=== PATIENT | female | born 1995 | race Caucasian/White ===

== ENCOUNTER → 2020-02-16 15:39 | Outpatient (CLI) | payer BC, SELFPAY ==
[2020-02-22 14:39] LABS: HPV HC, High Risk Negative (Negative)
== END ==
LOC: MFPLAB 15:42 → LABSPEC 15:43
PROVIDERS: PCP Family Medicine; Referring Provider Family Medicine; Visit Provider Family Medicine
DX: Z01.419 Encounter for gynecological examination (general) (routine) without abnormal findings (principal)
CPT/HCPCS: 87624; 88175; G0145

== ENCOUNTER → 2021-10-01 | Outpatient (CLI) | payer SELFPAY ==
[2021-10-01 16:33] LABS: Absolute Lymphocyte Count 1.99 X10^3/uL (0.83-4.51); Absolute Neutrophil Count 5.8 X10^3/uL (2.0-7.7); Basophil# 0.05 X10^3/uL; Basophil% 0.6 % (0-1); Eosinophil# 0.11 X10^3/uL; Eosinophils% 1.3 % (0-5); Hematocrit 38.3 % (37-47); Hemoglobin 12.9 g/dL (12.0-15.0); Lymphocyte # 1.99 X10^3/ul (0.83-4.51); Lymphocyte % 22.9 % (19-41); Mean Corp Hgb Conc 33.7 g/dL (32-36); Mean Corpuscular Hgb 30.7 pg (27.0-32.0); Mean Corpuscular Volume 91.2 fL (81-99); Mean Platelet Vol. 9.1 fl (6.2-12.0); Monocyte# 0.65 X10^3/uL; Monocyte% 7.5 % (0-10); NRBC Flagged by Analyzer 0 % (0-5); Neutrophil # 5.84 X10^3/uL (2.7-7.7); Neutrophil % 67.1 % (47-70); Platelet Count 274 K/mm3 (150-450); RBC Distribution Width CV 12.2 % (11.6-14.6); RBC Distribution Width SD 40.5 fl (35.1-43.9); White Blood Count 8.7 K/mm3 (4.4-11.0)
[2021-10-01 17:40] LABS: HIV - WCH Non-Reactive (Nonreactive); Hepatitis B Surface Antigen Non-Reactive (Nonreactive); Hepatitis C Antibody Non-Reactive (Nonreactive); Rubella IgG Reactive (Nonreactive); Syphilis Antibodies Non-reactive
[2021-10-03 22:07] LABS: Chlamydia By Nucleic Acid AMP Negative (Negative)
[2021-10-04 17:16] LABS: Gonococcus By Nucleic Acid AMP Negative (Negative)
[2021-10-04 21:44] LABS: HPV APTIMA, High Risk Negative (Negative)
== END | disposition home or self-care (01) ==
LOC: WOBLAB 15:21
PROVIDERS: PCP Family Medicine; Visit Provider Obstetrics & Gynecology
DX: Z34.81 Encounter for supervision of other normal pregnancy, first trimester (principal)
CPT/HCPCS: 36415; 85025; 86703; 86762; 86780; 86803; 87086; 87340; 87491; 87591; 87624; 88175; G0145

== ENCOUNTER → 2022-02-12 | Outpatient (CLI) | payer SELFPAY ==
[2022-02-12 14:37] LABS: Absolute Lymphocyte Count 1.38 X10^3/uL (0.83-4.51); Absolute Neutrophil Count 7.7 X10^3/uL (2.0-7.7); Basophil# 0.04 X10^3/uL; Basophil% 0.4 % (0-1); Eosinophil# 0.09 X10^3/uL; Eosinophils% 0.9 % (0-5); Hematocrit 37.3 % (37-47); Hemoglobin 12.7 g/dL (12.0-15.0); Lymphocyte # 1.38 X10^3/ul (0.83-4.51); Lymphocyte % 13.9 % (19-41); Mean Corpuscular Hgb 32.6 pg (27.0-32.0); Mean Corpuscular Volume 95.9 fL (81-99); Mean Platelet Vol. 9.6 fl (6.2-12.0); Monocyte# 0.57 X10^3/uL; Monocyte% 5.7 % (0-10); NRBC Flagged by Analyzer 0 % (0-5); Neutrophil % 77.3 % (47-70); Platelet Count 220 K/mm3 (150-450); RBC Distribution Width CV 12.2 % (11.6-14.6); RBC Distribution Width SD 42.3 fl (35.1-43.9); Red Blood Count 3.89 M/mm3 (4.2-5.4)
[2022-02-12 14:49] LABS: Glucose Challenge Gest 1H 50g 123 mg/dL (70-140)
== END | disposition home or self-care (01) ==
PROVIDERS: PCP Family Medicine; Visit Provider Obstetrics & Gynecology
DX: Z34.82 Encounter for supervision of other normal pregnancy, second trimester (principal)
CPT/HCPCS: 36415; 82950; 85025

== ENCOUNTER → 2022-04-23 | Outpatient (CLI) | payer SELFPAY ==
[2022-04-23 16:41] LABS: Absolute Lymphocyte Count 1.44 X10^3/uL (0.83-4.51); Absolute Neutrophil Count 7.5 X10^3/uL (2.0-7.7); Basophil# 0.03 X10^3/uL; Basophil% 0.3 % (0-1); Eosinophil# 0.05 X10^3/uL; Eosinophils% 0.5 % (0-5); Hematocrit 39.1 % (37-47); Hemoglobin 13.6 g/dL (12.0-15.0); Lymphocyte # 1.44 X10^3/ul (0.83-4.51); Lymphocyte % 14.8 % (19-41); Mean Corp Hgb Conc 34.8 g/dL (32-36); Mean Corpuscular Hgb 33.3 pg (27.0-32.0); Mean Corpuscular Volume 95.6 fL (81-99); Mean Platelet Vol. 9.5 fl (6.2-12.0); Monocyte# 0.59 X10^3/uL; Monocyte% 6.1 % (0-10); NRBC Flagged by Analyzer 0 % (0-5); Neutrophil # 7.49 X10^3/uL (2.7-7.7); Neutrophil % 76.8 % (47-70); Platelet Count 197 K/mm3 (150-450); RBC Distribution Width CV 12.2 % (11.6-14.6); RBC Distribution Width SD 42.3 fl (35.1-43.9); Red Blood Count 4.09 M/mm3 (4.2-5.4); White Blood Count 9.8 K/mm3 (4.4-11.0)
[2022-04-23 18:12] LABS: Syphilis Antibodies Non-reactive
== END | disposition home or self-care (01) ==
PROVIDERS: PCP Family Medicine; Visit Provider Obstetrics & Gynecology
DX: Z34.83 Encounter for supervision of other normal pregnancy, third trimester (principal); Z36.85 Encounter for antenatal screening for Streptococcus B
CPT/HCPCS: 36415; 85025; 86780; 87081

== ENCOUNTER 2022-05-16 22:08 | Inpatient (IN) | payer SELFPAY ==
[2022-05-16 19:53] VITALS: PULSE 83; O2SAT 97
[2022-05-16 19:54] VITALS: BP 112/70; PULSE 83
[2022-05-16 19:58] VITALS: PULSE 87; O2SAT 97
[2022-05-16 20:00] VITALS: BMI 30.8
[2022-05-16 22:40] LABS: Absolute Lymphocyte Count 1.53 X10^3/uL (0.83-4.51); Absolute Neutrophil Count 8.3 X10^3/uL (2.0-7.7); Basophil# 0.04 X10^3/uL; Basophil% 0.4 % (0-1); Eosinophil# 0.06 X10^3/uL; Eosinophils% 0.6 % (0-5); Hematocrit 40.4 % (37-47); Hemoglobin 13.9 g/dL (12.0-15.0); Lymphocyte # 1.53 X10^3/ul (0.83-4.51); Lymphocyte % 14.1 % (19-41); Mean Corp Hgb Conc 34.4 g/dL (32-36); Mean Corpuscular Hgb 32.7 pg (27.0-32.0); Mean Corpuscular Volume 95.1 fL (81-99); Mean Platelet Vol. 10.6 fl (6.2-12.0); Monocyte# 0.73 X10^3/uL; Monocyte% 6.7 % (0-10); NRBC Flagged by Analyzer 0 % (0-5); Neutrophil # 8.33 X10^3/uL (2.7-7.7); POSITIVE COUNT YES; Platelet Count 177 K/mm3 (150-450); RBC Distribution Width CV 12.1 % (11.6-14.6); RBC Distribution Width SD 41.9 fl (35.1-43.9); Red Blood Count 4.25 M/mm3 (4.2-5.4); White Blood Count 10.8 K/mm3 (4.4-11.0)
[2022-05-16 22:41] LABS: Differential Indicated SCAN CRITERIA MET
[2022-05-16 22:49] VITALS: BP 118/70; PULSE 76; TEMP 37.2; O2SAT 98
[2022-05-17] VITALS (68 sets, daily range): BP systolic 90–131; BP diastolic 51–78; PULSE 73–110; RESP 15–18; TEMP 36.1–37.2; O2SAT 96–99
[2022-05-17] MEDS: LACTATED RINGERS 500 ML 999 ML IV (04:26)
[2022-05-17] MEDS: Lactated Ringers 1,000 ML 200 ML IV ×2 (04:57→09:58)
[2022-05-17] MEDS: fentaNYL-bupivacaine (epidural) 100 ML BAG EPIDURAL ×2 (05:29→10:36)
--- NOTE | 2022-05-17 07:32 | HP.PCM.OB_ITS ---
History and Physical Date of Admission: 05/16/22 Chief complaint: Contractions History present illness: 26-year-old G2, P0 at 39 weeks and 3 days with DAVID 05/20/2022 arrived overnight with contractions. Denies headache, vision change, chest pain, shortness of breath, nausea vomit, right upper quadrant pain. Patient states good mo vement. is complicated by hydronephrosis Obstetric history: G1: SAB G2: Current Past medical history: None Medications: vitamin Past surgical history: None Allergies: No known drug allergies Social history: Denies smoking, alcohol, drug use Family history: Denies history DVT or PE Review of systems: Besides above pertinent positives a full review of systems was performed and found to be negative Physical exam: Vitals: Blood pressure 97/53 pulse 100 General: Normal-appearing no acute distress HEENT: Normocephalic/atraumatic no cervical of adenopathy Cardiac/respiratory: No use accessory muscles, nonlabored breathing Abdomen: Soft, nontender, gravid Pelvic: Cervical exam bulging bag, AROM clear fluid. Cervical exam /0 Extremities: No peripheral edema normal peripheral pulses Psych: Normal affect normal demeanor nonpressured speech Labs: White blood cell count 10.8 hemoglobin 13.9 hematocrit 40.4% platelets 177 blood type a positive antibody negative Assessment plan: 26-year-old G2, P0 at 39 weeks and 3 days arrived overnight with contractions called by nursing. Given admission orders. GBS negative. This morning received epidural, received call by nursing patient with epidural and comfortable. Patient seen and examined, AROM clear fluid. We will continue current management
[2022-05-17] MEDS: Oxytocin 10 UNITS/ML Vial IM (12:11)
--- NOTE | 2022-05-17 12:35 | EX.PCM.OBRPT ---
Vaginal Delivery Findings Description of Procedure: Normal spontaneous vaginal delivery of a viable male , vertex WENDY. Head and shoulders delivered with ease. Cord clamped and cut. Baby handed off to patient. Placenta delivered intact via cord traction and fundal massage. Second-degree midline perineal laceration noted and repaired in typical fashion. IM Pitocin given. EBL 300 cc Apgars 9/9
[2022-05-17] MEDS: Acetaminophen 500 MG Tablet 1000 MG PO (18:37)
[2022-05-17] MEDS: Ibuprofen 600 MG Tablet PO (23:36)
[2022-05-18 04:00] VITALS: BP 93/54; PULSE 84; RESP 17; TEMP 36.3
[2022-05-18] MEDS: Acetaminophen 500 MG Tablet 1000 MG PO ×2 (05:56→13:01)
--- NOTE | 2022-05-18 07:01 | NURSING ---
During 554 rounds, pt mentioned she felt like she had a little extra bleeding the last time she got up to the bathroom. This RN checked pad in trash can and bleeding was still appropriate and no clots were noted by pt or this RN. Pt fundus is 1 below and firm.
[2022-05-18 07:45] VITALS: BP 110/65; PULSE 85; RESP 18; TEMP 36.7
--- NOTE | 2022-05-18 09:30 | DCINST_ITS ---
Discharge Instructions Diet Discharge Diet: No restrictions Activity Discharge Activity: Return to Normal Activity, May Drive and May Shower May resume sexual activity in: 4-6 weeks Weight Bearing Status: Weight bearing as tolerated Dressing / Incision Call your doctor if your incision/area has: Continuous Slow Oozing and Foul Smelling Discharge Call your doctor if you observe: Fever of 101 or Higher, Shortness of breath and Chest pain Follow Up Care Please Follow Up With: Johnny Song MD When: 4 to 6 weeks Test Results: Test results from this visit will be discussed in further detail at your follow- up appointment, if applicable. Discharge Plan Admission Admit Date/Time: 05/16/22 22:08 Attending Provider: Johnny Song Primary Care Provider: Alexys Khan Discharge Orders/Prescriptions Prescriptions: No Action 1 mg Tablet 1 tab PO DAILY Referrals / Follow Up: Alexys Khan MD [Primary Care Provider] - Disposition Discharge Orders: Discharge Patient (Routine); Ordered 05/18/22 Ordered By: Dr. Johnny Song
--- NOTE | 2022-05-18 09:31 | PCM.PN.OB ---
Subjective Subjective No overnight complaint Objective Data Objective Data Vital Signs: Vital Signs Temp Pulse Resp BP Pulse Ox O2 Del Method 98.0 F 85 18 110/65 98 Room Air 05/18/22 07:45 05/18/22 07:45 05/18/22 07:45 05/18/22 07:45 05/17/22 16:00 05/17/22 16:00 Oxygen Delivery Method Room Air Weight: 190 lb 14.725 oz Body Mass Index (BMI) 30.8 Intake & Output: Intake and Output for Last 24 Hours 05/16/22 05/17/22 05/18/22 23:59 23:59 23:59 Intake Total 2443.33 / 2443.33 Output Total 2200 / 2200 Balance 243.33 / 243.33 Lab / Micro Data Result Diagrams: 05/16/22 Unknown Physical Exam Const alert, oriented x3, no apparent distress, average body habitus, healthy appearing and well nourished HEENT normocephalic and moist oral mucous membranes Eyes PERRL Neck full ROM Resp normal respiratory effort, no retractions and no use of accessory muscles Extremity normal to inspection and full ROM Neuro moves all extremities and no focal motor deficits Psych mental status grossly normal, affect normal, speech normal and activity/motor behavior normal Assessment & Plan (1) Vaginal delivery: PLAN: day 1. Breast-feeding. Pain well controlled. Okay to discharge home today if okay with fitness coach
[2022-05-18 12:45] VITALS: BP 104/63; PULSE 91; RESP 18; TEMP 36.9
[2022-05-18] MEDS: Ibuprofen 600 MG Tablet PO (15:54)
[2022-05-18 15:55] VITALS: BP 105/69; PULSE 79; RESP 16; TEMP 36.7
== END 2022-05-18 18:45 | disposition home or self-care (01) | DRG 807 ==
LOC: WPOUT 22:11 → WP 22:11
PROVIDERS: Admitting Provider Obstetrics & Gynecology; PCP Family Medicine; Visit Provider Obstetrics & Gynecology
DX: O70.1 Second degree perineal laceration during delivery (principal); Z37.0 Single live birth; Z3A.39 39 weeks gestation of pregnancy
CPT/HCPCS: 59025; 59050; 85025; 86850; 86900; 86901; 99221; J7120; G0378

== ENCOUNTER → 2024-02-02 | Outpatient (CLI) | payer SELFPAY ==
[2024-02-02 12:35] LABS: Basophil# 0.05 X10^3/uL; Basophil% 0.6 % (0-1); Eosinophil# 0.06 X10^3/uL; Eosinophils% 0.8 % (0-5); Hematocrit 39.5 % (37-47); Hemoglobin 13.1 g/dL (12.0-15.0); Lymphocyte % 16.6 % (19-41); Mean Corp Hgb Conc 33.2 g/dL (32-36); Mean Corpuscular Hgb 30.3 pg (27.0-32.0); Mean Corpuscular Volume 91.2 fL (81-99); Mean Platelet Vol. 9.4 fl (6.2-12.0); Monocyte# 0.42 X10^3/uL; Monocyte% 5.4 % (0-10); NRBC Flagged by Analyzer 0 % (0-5); Neutrophil # 5.95 X10^3/uL (2.7-7.7); Neutrophil % 76.2 % (47-70); Platelet Count 281 K/mm3 (150-450); RBC Distribution Width CV 12.4 % (11.6-14.6); RBC Distribution Width SD 41.6 fl (35.1-43.9); Red Blood Count 4.33 M/mm3 (4.2-5.4); White Blood Count 7.8 K/mm3 (4.4-11.0)
[2024-02-03 21:07] LABS: Chlamydia By Nucleic Acid AMP Negative (Negative); Gonococcus By Nucleic Acid AMP Negative (Negative)
[2024-02-05 13:01] LABS: HEPATITIS B SURFACE AG - REF REF LAB
== END | disposition home or self-care (01) ==
LOC: WOBLAB 10:10
PROVIDERS: PCP Family Medicine; Referring Provider Obstetrics & Gynecology; Visit Provider Obstetrics & Gynecology
DX: Z34.90 Encounter for supervision of normal pregnancy, unspecified, unspecified trimester (principal)
CPT/HCPCS: 36415; 85025; 86703; 86762; 86780; 86803; 86850; 86900; 86901; 87086; 87088; 87340; 87491; 87591

== ENCOUNTER → 2024-04-06 | Outpatient (CLI) | payer MEDICAID, SELFPAY ==
--- NOTE | 2024-04-06 15:23 | US_ITS ---
STUDY: SECOND AND THIRD TRIMESTER OBSTETRICAL ULTRASOUND REASON FOR EXAM: Female, 28 years old routine survey to include anatomy LMP: 11/15/2023 TECHNIQUE: Transabdominal and Transvaginal TECHNICAL QUALITY: Adequate. PRIOR ULTRASOUND: None. FINDINGS: There is a single intrauterine fetus. The fetus is in a transverse lie with the head on the maternal right side, but fetus is moving during the exam. There is demonstrated cardiac activity with a heart rate of 147 bpm. There is a subjectively normal amniotic fluid volume. The largest amniotic fluid pocket measures 4.7 cm. The placenta is posterior in location and is not low lying. There are Grade 1 placental changes. The cervix measures 4.3 cm in length. The bilateral adnexal regions are normal. BIOMETRY: BPD: 4.9 cm: 20 weeks, 6 days HC: 18.5 cm: 20 weeks, 6 days AC: 16.8 cm: 21 weeks, 6 days FL: 3.4 cm: 20 weeks, 5 days age by current US: 21 weeks, 0 days. DAVID by current US: 08/17/2024. Estimated weight: 415 grams, +/- 62 grams, 87.4 %. ANATOMY: Gender: Male Cranium: Normal lateral ventricles, measuring 0.6 cm. Normal choroid plexus. Normal cerebellum measuring 2.1 cm. Normal cisterna magna measuring 0.5 cm. Normal face, nose and lips. Chest: Normal 4-chamber heart. Abdomen/Pelvis: Normal diaphragm. Normal stomach. Normal abdominal wall. Normal cord insertion. Normal 3 vessel cord. Normal kidneys. Normal bladder. Spine: Normal cervical spine. Normal thoracic spine. Normal lumbar spine. Normal sacrum. Extremities: Normal bilateral upper extremities. Normal bilateral lower extremities. IMPRESSION: Single live intrauterine at 21 weeks, 0 day by current ultrasound with DAVID of 08/17/2024. Heart rate at 147 bpm. No suspicious sonographic findings. Electronically Signed: Antonio Dunn MD at 8:57 EST , STUDY: SECOND AND THIRD TRIMESTER OBSTETRICAL ULTRASOUND REASON FOR EXAM: Female, 28 years old routine survey to include anatomy LMP: 11/15/2023 TECHNIQUE: Transvaginal TECHNICAL QUALITY: Adequate. PRIOR ULTRASOUND: None. FINDINGS: There is a single intrauterine fetus. The fetus is in a transverse lie with the head on the maternal right side, but fetus is moving during the exam. There is demonstrated cardiac activity with a heart rate of 147 bpm. There is a subjectively normal amniotic fluid volume. The largest amniotic fluid pocket measures 4.7 cm. The placenta is posterior in location and is not low lying. There are Grade 1 placental changes. The cervix measures 4.3 cm in length. The bilateral adnexal regions are normal. BIOMETRY: BPD: 4.9 cm: 20 weeks, 6 days HC: 18.5 cm: 20 weeks, 6 days AC: 16.8 cm: 21 weeks, 6 days FL: 3.4 cm: 20 weeks, 5 days age by current US: 21 weeks, 0 days. DAVID by current US: 08/17/2024. Estimated weight: 415 grams, +/- 62 grams, 87.4 %. ANATOMY: Gender: Male Cranium: Normal lateral ventricles, measuring 0.6 cm. Normal choroid plexus. Normal cerebellum measuring 2.1 cm. Normal cisterna magna measuring 0.5 cm. Normal face, nose and lips. Chest: Normal 4-chamber heart. Abdomen/Pelvis: Normal diaphragm. Normal stomach. Normal abdominal wall. Normal cord insertion. Normal 3 vessel cord. Normal kidneys. Normal bladder. Spine: Normal cervical spine. Normal thoracic spine. Normal lumbar spine. Normal sacrum. Extremities: Normal bilateral upper extremities. Normal bilateral lower extremities. US/OB Anatomy w/ Transvaginal
== END | disposition home or self-care (01) ==
PROVIDERS: PCP Family Medicine; Referring Provider Nurse Practitioner Women's Health; Visit Provider Nurse Practitioner Women's Health
DX: Z36.89 Encounter for other specified antenatal screening (principal)
CPT/HCPCS: 76805; 76817

== ENCOUNTER → 2024-05-28 | Outpatient (CLI) | payer SELFPAY ==
[2024-05-28 12:19] LABS: Glucose Challenge Gest 1H 50g 89 mg/dL (70-140)
[2024-05-28 12:20] LABS: Absolute Lymphocyte Count 1.79 X10^3/uL (0.83-4.51); Absolute Neutrophil Count 5.6 X10^3/uL (2.0-7.7); Basophil# 0.06 X10^3/uL; Basophil% 0.7 % (0-1); Eosinophil# 0.08 X10^3/uL; Hematocrit 39.6 % (37-47); Hemoglobin 13.3 g/dL (12.0-15.0); Lymphocyte # 1.79 X10^3/ul (0.83-4.51); Lymphocyte % 22.3 % (19-41); Mean Corp Hgb Conc 33.6 g/dL (32-36); Mean Corpuscular Hgb 31.6 pg (27.0-32.0); Mean Corpuscular Volume 94.1 fL (81-99); Mean Platelet Vol. 9.5 fl (6.2-12.0); Monocyte# 0.44 X10^3/uL; Monocyte% 5.5 % (0-10); NRBC Flagged by Analyzer 0 % (0-5); Neutrophil # 5.58 X10^3/uL (2.7-7.7); Neutrophil % 69.5 % (47-70); Platelet Count 211 K/mm3 (150-450); RBC Distribution Width CV 12.6 % (11.6-14.6); RBC Distribution Width SD 43.4 fl (35.1-43.9); Red Blood Count 4.21 M/mm3 (4.2-5.4)
[2024-06-02 12:07] LABS: Syphilis Antibodies Non-reactive
[2024-06-02 12:08] LABS: HIV - WCH Nonreactive (Nonreactive)
== END | disposition home or self-care (01) ==
LOC: BWCLAB 10:36
PROVIDERS: Advanced Practice Midwife; PCP Family Medicine; Referring Provider Obstetrics & Gynecology; Visit Provider Obstetrics & Gynecology
DX: Z34.82 Encounter for supervision of other normal pregnancy, second trimester (principal)
CPT/HCPCS: 36415; 82950; 85025; 86703; 86780

== ENCOUNTER → 2024-07-26 | Outpatient (CLI) | payer SELFPAY | END | disposition home or self-care (01) | PROVIDERS: PCP Family Medicine; Visit Provider Advanced Practice Midwife | DX: Z34.83 Encounter for supervision of other normal pregnancy, third trimester (principal) | CPT/HCPCS: 87081 ==

== ENCOUNTER 2024-08-16 17:45 | Inpatient (IN) | payer MEDICAID, SELFPAY ==
[2024-08-16] VITALS (12 sets, daily range): BP systolic 92–148; BP diastolic 52–138; PULSE 81–98; RESP 11–23; TEMP 36.9; O2SAT 95–100; BMI 32.1
[2024-08-16] MEDS: Lactated Ringers 1,000 ML 999 ML IV (18:25)
--- NOTE | 2024-08-16 18:34 | HP.PCM.OB_ITS ---
HPI - General General Date of Admission: 08/16/24 HPI Narrative LAM MACHADO, is a 28 y/o @ 39 weeks days who presents to L&D for a primary section due to breech and oligohydramnios. She denies loss of fluid, vaginal bleeding, or dec fm. Maternal Data Information DAVID Calculator Estimated Delivery Date Method Current WG Current Estimate 08/21/24 LMP (Certain) 39w 2d Other Estimates 08/16/24 Ultrasound #1 40w 0d PFSH PFSH Home Medications ?Medication ?Instructions ?Recorded ?Last Taken ?Type mlevvusu-hxe-Vw-FA 1 mg 1 tab PO DAILY pregna ncy 05/16/22 08/14/24 06:00 History tablet 1 TAB Allergy/AdvReac Type Severity Reaction Status Date / Time No Known Allergies Allergy Verified 08/16/24 18:40 Family History Grandfather Diabetes MATERNAL Heart disease PATERNAL Grandmother Diabetes MATERNAL Father Heart disease, Onset Age: 59 AFIB Surgical History [place] teeth extracted Social History adopted: No household members: spouse and children number of children: 1 current occupational status: employed 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 current occupational exposures/hazards: No pets and animals: Yes (AVOID LITTER BOX) pets and animals: cat(s) history of recent travel: No sexually active: Yes Smoking Status: Never smoker alcohol intake: never substance use type: does not use well-balanced diet: daily or most days caffeine: Yes Type: coffee Number of servings: 1 eating out: 1-3 times/week during the past year weight has: remained stable what type of physical activity do you participate in: none raj/synagogue: [employer] seatbelt use: always do you feel safe at home: Yes additional social history: VIVIEN- VIDEOGRAPHY/PHOTOGRQAPHY History 3 Elective abortions Hx Para 1 Spontaneous abortions 1 Hx # Term Pregnancies Ectopic pregnancies Hx # Pregnancies Multiple births # of living children 1 Past Pregnancies Del. Date Name GA/Weeks Outcome Route Bth Weight Infant Gen Labor Lgth Anesthesia Del Locatn Provider FOB Unknown June 2021 Chemical 5 spontaneous 05/17/22 Jamie 40 live - full term Male epidur al [facility] Johnny Coy Visit Details Expected Delivery Route/Plan Labor Preferences- CB/BF classes: no labor support person: Vivien labor intervention preferences: [] pain management options preferred: [] cut cord/dad catch: [] : [] PP control planned: [] discussed possible routes of delivery and associated risks: [] special requests: [] Plans Covid status: [] Flu vaccine: [] Tdap vaccine: declines Rhogam: [] LARC form signed: yes Problem list reviewed and updated with the most current plan of care details and appropriate orders placed. Relevant counseling for the gestational age provided. Continue routine care and follow up unless otherwise noted in visit notes/problem list details OB Flowsheet Initial Weight: 158 lb Date -?-?-?-?-?-?-?-?-?-?-?-?- EGA Weight BP Urine Prot -?-?-?-?-?-?-?-?-?-?-?-?- Glucose FHR FuHt Pres Dilation -?-?-?-?-?-?-?-?-?-?-?-?- Effaced St Visit Note 02/02/24 -?-?-?-?-?-?-?-?-?-?-?-?- 11w 2d 158 lb (+0 oz) 124/86 -?-?-?-?-?-?-?-?-?-?-?-?- 166 -?-?-?-?-?-?-?-?-?-?-?-?- SM- CRL- 5.3cm c ons with LMP 03/02/24 -?-?-?-?-?-?-?-?-?-?-?-?- 15w 3d 162 lb (+4 lb) 116/72 Negative -?-?-?-?-?-?-?-?-?-?-?-?- Negative 151 -?-?-?-?-?-?-?-?-?-?-?-?- MH-No VB. Review ed normal PN labs. Denies concerns 03/31/24 -?-?-?-?-?-?-?-?-?-?-?-?- 19w 4d 165 lb (+7 lb) 109/71 Negative -?-?-?-?-?-?-?-?-?-?-?-?- Negative 152 -?-?-?-?-?-?-?-?-?-?-?-?- MH-No VB. Melisain g movement. Some sciatica pain:enc heat, massage, chiro care. 04/29/24 -?-?-?-?-?-?-?-?-?-?-?-?- 23w 5d 175 lb (+17 lb) 109/71 Negative -?-?-?-?-?-?-?-?-?-?-?-?- Negative 145 22 -?-?-?-?-?-?-?-?-?-?-?-?- KW- no vb/lof/ct x. good fm. reviewed US. 28 week labs discussed. 05/28/24 -?-?-?-?-?-?-?-?-?-?-?-?- 27w 6d 176 lb 4 oz (+18 lb 4 oz) 111/74 Negative -?-?-?-?-?-?-?-?-?-?-?-?- Negative 145 27 -?-?-?-?-?-?-?-?-?-?-?-?- KW- glucose toda y. no vb/lof/ctx. good fm. LARC today. declines tdap and CBE class. 06/17/24 -?-?-?-?-?-?-?-?-?-?-?-?- 30w 5d 185 lb 4 oz (+27 lb 4 oz) 108/72 Negative -?-?-?-?-?-?-?-?-?-?-?-?- Negative 151 30 -?-?-?-?-?-?-?-?-?-?-?-?- MH-No Vb, LOF. G ood FM. No concerns 06/30/24 -?-?-?-?-?-?-?-?-?-?-?-?- 32w 4d 188 lb 6 oz (+30 lb 6 oz) 102/70 Negative -?-?-?-?-?-?-?-?-?-?-?-?- Negative 137 33.5 -?-?-?-?-?-?-?-?-?-?-?-?- JV- no complaint s today. undecided on baby's name. no lof,vaginal bleeding, or dec fm. 07/14/24 -?-?-?-?-?-?-?-?-?-?-?-?- 34w 4d 195 lb (+37 lb) 107/71 Negative -?-?-?-?-?-?-?-?-?-?-?-?- Negative 135 35.5 -?-?-?-?-?-?-?-?-?-?-?-?- JV- no complaint s today. + fm, no lof, vaginal bleeding. 07/26/24 -?-?-?-?-?-?-?-?-?-?-?-?- 36w 2d 196 lb 2 oz (+38 lb 2 oz) 113/76 Negative -?-?-?-?-?-?-?-?-?-?-?-?- Negative 160 36 Cephalic 2 -?-?-?-?-?-?-?-?-?-?-?-?- 70 -2 KW-no vb/l of/ctx. good fm. GBS today. labor precautions 08/04/24 -?-?-?-?-?-?-?-?-?-?-?-?- 37w 4d 198 lb 2 oz (+40 lb 2 oz) 109/72 Negative -?-?-?-?-?-?-?-?-?-?-?-?- Negative 140 37 Cephalic 2 -?-?-?-?-?-?-?-?-?-?-?-?- SM- no vb lof go od fm no reuglar ctx 08/09/24 -?-?-?-?-?-?-?-?-?-?-?-?- 38w 2d 200 lb (+42 lb) 106/73 Negative -?-?-?-?-?-?-?-?-?-?-?-?- Negative 140 39 Cephalic 3 -?-?-?-?-?-?-?-?-?-?-?-?- 80 -2 KW- no vb/ lof/ctx. good fm. requesting membrane sweep next week. labor precautions 08/16/24 -?-?-?-?-?-?-?-?-?-?-?-?- 39w 2d 203 lb (+45 lb) 119/75 Negative -?-?-?-?-?-?-?-?-?-?-?-?- Negative Breech 4 -?-?-?-?-?-?-?-?-?-?-?-?- 80 -2 JV- during exam it was apparent the head was not in the pelvis. head right upper quadrant. Alvina is 5. planning primary section today. she ate ate 12:30 pm 2 hot dogs and potatoes . planning for 8:30 tonight. ROS Constitutional Constitutional: Denies change in weight, fatigue, fever(s), headache(s), poor appetite or weakness Eyes Eyes: Denies blurry vision, change in vision, seeing flashes or spots in vision ENT HEENT: Denies dizziness, headache(s), loss taste/smell or sore throat Cardiovascular Cardiovascular: Denies chest pain, dizziness, dyspnea, irregular heart rhythm, leg edema, palpitations, rapid heart rate or vomiting Respiratory/Chest Respiratory/Chest: Denies chest tightness, cough, dyspnea or breast pain Gastrointestinal Gastrointestinal: Denies abdominal pain, anorexia, constipation, cramping, diarrhea, hemorrhoids, vomiting or weight changes Genitourinary Genitourinary: Denies dysuria, flank pain, genital lesions, genital pain, urinary frequency or urinary urgency Musculoskeletal Musculoskeletal: Denies back pain, difficulty walking, joint pain, limited range of motion, muscle cramps or numbness Integumentary Integumentary: Denies lesions or unusual bruising Neurologic Neurologic: Denies abnormal movements, abnormal speech, dizziness, numbness, seizure-like activity or syncope Psychiatric Psychiatric: Denies anxiety, behavioral changes, change in appetite, change in libido, cognitive impairment, confusion, depression, difficulty concentrating, hallucinations or suicidal thoughts Endocrine Endocrinology: Denies excessive sweating, polydipsia or polyuria Hematologic/Lymphatic Hematologic/Lymphatic: Denies easy bleeding, easy bruising or lymphadenopathy Allergic/Immunologic Allergic/Immunologic: Denies itchy eyes, lip swelling, seasonal rhinorrhea, rhinitis, throat swelling, tongue swelling, eczemia, wheezing or asthma Physical Exam Const alert, oriented x3, no apparent distress and healthy appearing General Appearance: cooperative; Negative for anxious HEENT normocephalic Face and Sinus: normal facial exam Eyes EOMs intact bilaterally and no scleral icterus General Eye: normal appearance of both eyes Neck full ROM and supple Lymph Lymphatic: no lymphadenopathy noted Chest Chest: abnormal inspection of the chest Resp normal respiratory effort Effort and Inspection: able to speak in complete sentences Cardio regular rate GI soft to palpation and non-tender Inspection: gravid Palpation: soft; Negative for tender external exam normal Narrative: cervix is 4/80/-3 breech Back/Spine no CVA tenderness Extremity normal to inspection, full ROM and no clubbing, cyanosis or edema General Extremity: Negative for calf tenderness or edema Skin Lesions: no lesions Rashes: no rashes Psych mental status grossly normal Labs Labs Labs: Blood Type A POSITIVE Antibody Screen NEGATIVE Hct 39.6 % (37-47) Hgb 13.3 g/dL (12.0-15.0) Obstetrics Ultrasound Syphilis Total Ab Non-reactive Rubella IgG Antibody Reactive (Nonreactive) Hep Bs Antigen Negative (Negative) Hepatitis C Antibody Non-Reactive (Nonreactive) Hepatitis C Ab (EIA) Non Reactive (Non Reactive) Chlamydia DNA (MAGI) Negative (Negative) N.gonorrhoeae DNA (MAGI) Negative (Negative) HIV 1&2 Antibody Nonreactive (Nonreactive) Glucose 1 Hr 50 gm 89 mg/dL (70-140) Rhogam given: No Assessment & Plan (1) Breech presentation: (2) Supervision of normal : QUALIFIERS: Normal : other normal Trimester: third trimester Qualified Code(s): Z34.83 - Encounter for supervision of other normal , third trimester COMMENT: [id number], DAVID 08/21/24, NASIM Ayala, Vivien (3) : QUALIFIERS: Weeks of gestation: 39 weeks Qualified Code(s): Z3A.39 - 39 weeks gestation of COMMENT: GBS neg, discussed gentetic & carrier testing-declined; AFP declined; Nl anatomy US (4) Oligohydramnios: PLAN: Plan After discussing the patient's diagnosis and treatment plan options, patient wishes to proceed with surgical management. I have discussed with the patient the risks, benefits, and alternatives of the procedure which include but are not limited to risks of anesthesia, bleeding, infection, possible damage to bowel, bladder, or surrounding vasculature which could lead to additional surgery to evaluate any complications. Patient agrees to procedure and wishes to proceed. plan for primary section tonight.
[2024-08-16 18:45] LABS: Absolute Lymphocyte Count 1.72 X10^3/uL (0.83-4.51); Absolute Neutrophil Count 5.8 X10^3/uL (2.0-7.7); Basophil# 0.01 X10^3/uL; Basophil% 0.1 % (0-1); Eosinophil# 0.07 X10^3/uL; Eosinophils% 0.8 % (0-5); Hematocrit 38.8 % (37-47); Hemoglobin 13.6 g/dL (12.0-15.0); Lymphocyte # 1.72 X10^3/ul (0.83-4.51); Lymphocyte % 20.8 % (19-41); Mean Corp Hgb Conc 35.1 g/dL (32-36); Mean Corpuscular Hgb 32.5 pg (27.0-32.0); Mean Corpuscular Volume 92.6 fL (81-99); Mean Platelet Vol. 9.8 fl (6.2-12.0); Monocyte# 0.61 X10^3/uL; Monocyte% 7.4 % (0-10); NRBC Flagged by Analyzer 0 % (0-5); Neutrophil # 5.83 X10^3/uL (2.7-7.7); Neutrophil % 70.5 % (47-70); Platelet Count 203 K/mm3 (150-450); RBC Distribution Width CV 12.2 % (11.6-14.6); RBC Distribution Width SD 41.3 fl (35.1-43.9); Red Blood Count 4.19 M/mm3 (4.2-5.4); White Blood Count 8.3 K/mm3 (4.4-11.0)
--- NOTE | 2024-08-16 18:54 | DCINST_ITS ---
Discharge Instructions Diet Discharge Diet: No restrictions DC O2, CPAP, BIPAP needs Home O2 Discharge instructions: No Dressing / Incision Discharge Activity: May Not Drive (for 2 weeks or while taking narcotic pain medications.), May Shower and May Take a Tub Bath (in 7 days.) May resume sexual activity in: 4-6 weeks Weight Bearing Status: Full weight bearing Lifting Restrictions: 20 pounds Dressing / Incision Call your doctor if your incision/area has: Continuous Slow Oozing, Sudden Increased Bleeding, Increased Pain/ Swelling, Increased Redness and Foul Smelling Discharge Call your doctor if you observe: Fever of 101 or Higher and Using more than 1 pad per hour Suture Line Care: Avoid Pulling/Pushing and Avoid Pinching/Bending Cleanse incision/area with: Soap & Water and Keep Dressing Clean & Dry Follow Up Care Please Follow Up With: Bela Vivar DO When: Call [phone] to make an appointment for an incision check in 1-2 weeks. Test Results: Test results from this visit will be discussed in further detail at your follow- up appointment, if applicable. Discharge Plan Admission Admit Date/Time: 08/16/24 17:45 Primary Reason for Your Visit: section for breech presentation Attending Provider: Bela Vivar Primary Care Provider: Alexys Khan Discharge Orders/Prescriptions Prescriptions: New ibuprofen 800 mg tablet 800 mg PO Q8H PRN (Reason: pain) Qty: 30 0RF oxycodone-acetaminophen [Percocet] 5-325 mg tablet 1 tab PO Q4H PRN (Reason: pain) 7 Days Qty: 20 0RF No Action 1 mg Tablet 1 tab PO DAILY Referrals / Follow Up: Alexys Khan MD [Primary Care Provider] - Disposition Disposition (needs filled in before D/C Order can be placed): Home, Self Care
[2024-08-16] MEDS: Lactated Ringers 1,000 ML 150 ML IV (19:32)
[2024-08-16] MEDS: Acetaminophen 500 MG Tablet 1000 MG PO (19:33)
[2024-08-16 19:55] LABS: Syphilis Antibodies Nonreactive (Nonreactive)
[2024-08-16] MEDS: Sodium Citrate/Citric Acid 30 ML UDC PO (20:13)
[2024-08-16] MEDS: Cefazolin 2 GM in 0.9% Normal Saline (100mL Bag) 100 ML IV (20:32)
--- NOTE | 2024-08-16 21:23 | EX.PCM.OBRPT ---
Assessment & Plan (1) Oligohydramnios: (2) Breech presentation: (3) Supervision of normal : QUALIFIERS: Normal : other normal Trimester: third trimester Qualified Code(s): Z34.83 - Encounter for supervision of other normal , third trimester COMMENT: [id number], DAVID 08/21/24, NASIM Jamie, Zbigniew (4) : QUALIFIERS: Weeks of gestation: 39 weeks Qualified Code(s): Z3A.39 - 39 weeks gestation of COMMENT: GBS neg, discussed gentetic & carrier testing-declined; AFP declined; Nl anatomy US Maternal Data Information DAVID Calculator Estimated Delivery Date Method Current WG Current Estimate 08/21/24 LMP (Certain) 40w 2d Other Estimates 08/16/24 Ultrasound #1 41w 0d Final DAVID: 08/21/24 Final DAVID Source: LMP Operative Report (OB) Details Procedure Type: low transverse Date of Procedure: 08/16/24 Procedure Start Time: 20:43 Procedure Stop Time: 21:21 Time of Delivery: 20:48 Pre-Operative Diagnosis: Breech Post-Operative Diagnosis: Same as Pre-operative diagnosis and Other Post-Operative Diag OTHER Post-Operative Diagnosis: none Classification: Scheduled Type of Anesthesia: Spinal Antibiotic Given: Ancef 2 grams IV x1 Drain: Garza to straight drain Estimated Blood Loss: 600cc Findings Description of surgery: The patient is a 28 y/o @ 39 weeks 2 days presented for primary due to breech and oligohydramnios. Spinal anesthesia was placed without difficulty. Garza catheter was placed. The patient was placed in the dorsal supine position with leftward tilt. Patient was prepped and draped in the normal sterile fashion. Pfannenstiel skin incision was made with the scalpel and carried through to the underlying layer of fascia with the scalpel. Fascia was nicked in the midline and the incision extended laterally. The rectus bellies were dissected off superiorly and inferiorly with out complication both sharply and bluntly. The peritoneum was entered digitally. The incision was stretched and a low transverse uterine incision was made with the scalpel. The 's head was delivered atraumatically followed by the anterior and posterior shoulders without complication the rest of the delivered. The cord was clamped and cut and the was handed off to awaiting nurse. The placenta was delivered spontaneously immediately following and was noted to be intact and have a three-vessel cord. The uterus was exteriorized cleared of all clots and debris, and the incision was closed in a double layer closure using #1 Vicryl and #1 Monocryl. The ovaries and fallopian tubes were noted to be within normal limits. The uterus was returned to the maternal abdomen and gutters were cleared of all clots and debris. The peritoneum was closed with 3-0 Monocryl in a running fashion. Fascia was closed with 0 PDS in a running fashion. Subcutaneous tissue was copiously irrigated and the skin was closed with 3-0 Monocryl in a subcuticular fashion. Mepilex dressing was applied without complication. Patient was taken to recovery in stable condition. It was discussed with the patient that based on the clinical information obtained during this encounter, combined with her history, at this time I would recommend or rpeat for future deliveries if further pregnancies are desired. Surgical findings: viable male infant angela Presentation: Cezar Breech Amniotic Membrane Rupture Type: Artificial Amniotic Fluid Description: Clear Placental Delivery Description: Expressed Placenta Disposition: [facility] Specimen collected: No Cord Vessel Description: 3 Vessels Cord Entanglement: None Infant A gender: Male (1 minute): 8 (5 minute): 9 Delayed Cord Clamping: Yes Stationary Engineer atomic physics teacher: Yes Infection Control Rn: Maik Dickinson Tasks completed by water quality assistant: Closing and Retracting Additional surgical first assistant?: Yes Additional Renal Social Worker #2: Jackie Crisostomo Tasks completed by surgical first assistant #2: Closing, Trocar and Retracting Additional surgical first assistant?: No Complications Complications: No Multi Select Codes Urinary/Genital Urinary/Genital CPT Codes: 03619 Delivery [facility]
[2024-08-16] MEDS: Methylergonovine 0.2 MG/ML Ampul IM (21:45)
[2024-08-16] MEDS: Oxytocin 15 Units/NS 250ml 15 UNITS/250 ML IV.SOLN 83 UNITS IV (21:53)
[2024-08-16] MEDS: Ketorolac 30 MG/ML Syringe IV (23:57)
[2024-08-17] VITALS (10 sets, daily range): BP systolic 97–115; BP diastolic 66–82; PULSE 79–103; RESP 16–18; TEMP 36.4–36.9; O2SAT 97–99
[2024-08-17] MEDS: Acetaminophen 500 MG Tablet 1000 MG PO ×4 (01:28→19:56)
[2024-08-17] MEDS: Ketorolac 30 MG/ML Syringe IV ×3 (06:08→17:25)
--- NOTE | 2024-08-17 07:16 | PN.OBGYN_ITS ---
Subjective Subjective Patient doing well without complaints. Tolerating PO. Ambulating and voiding without difficulty. Feeding well. Denies chest pain, shortness of breath, calf pain/swelling, fevers, chills, lightheadedness. Objective Data Objective Data Vital Signs: Vital Signs Temp Pulse Resp BP Pulse Ox O2 Del Method 97.8 F 84 16 109/70 97 Room Air 08/17/24 06:05 08/17/24 06:05 08/17/24 06:05 08/17/24 06:05 08/17/24 06:05 08/17/24 06:05 Oxygen Delivery Method Room Air Weight: 198 lb 10.184 oz Body Mass Index (BMI) 32.1 Intake & Output: Intake and Output for Last 24 Hours 08/15/24 08/16/24 08/17/24 23:59 23:59 23:59 Intake Total 1650 / 1650 250 / 250 Output Total 900 / 900 250 / 250 Balance 750 / 750 0 / 0 Lab / Micro Data 08/16/24 18:20 Labs: Laboratory Results - last 24 hr 08/16/24 18:20: WBC 8.3, RBC 4.19 L, Hgb 13.6, Hct 38.8, MCV 92.6, MCH 32.5 H, MCHC 35.1, RDW Std Deviation 41.3, RDW Coeff of Brady 12.2, Plt Count 203, MPV 9.8, Immature Gran % (Auto) 0.400, Neut % (Auto) 70.5 H, Lymph % (Auto) 20.8, [place] % (Auto) 7.4, Eos % (Auto) 0.8, Baso % (Auto) 0.1, Absolute Neuts (auto) 5.8, Absolute Lymphs (auto) 1.72, Nucleated RBC % 0, Syphilis Total Ab Nonreactive, Blood Type A POSITIVE, Antibody Screen NEGATIVE ROS Constitutional Constitutional: Reports systems reviewed and no addt'l complaints, except as documented; Denies anorexia or headache(s) Cardiovascular Cardiovascular: Reports systems reviewed and no addt'l complaints, except as documented; Denies dizziness, dyspnea, nausea or tachypnea Respiratory/Chest Respiratory/Chest: Reports systems reviewed and no addt'l complaints, except as documented; Denies cough, dyspnea, shortness of breath at rest or tachypnea Gastrointestinal Gastrointestinal: Reports systems reviewed and no addt'l complaints, except as documented; Denies abdominal pain, constipation or nausea Genitourinary Genitourinary: Reports systems reviewed and no addt'l complaints, except as documented; Denies burning urination, difficulty urinating, dysuria, urinary frequency or urinary incontinence Musculoskeletal Musculoskeletal: Reports systems reviewed and no addt'l complaints, except as documented Integumentary Integumentary: Reports systems reviewed and no addt'l complaints, except as documented Neurologic Neurologic: Reports systems reviewed and no addt'l complaints, except as documented; Denies abnormal speech, dizziness or headache(s) Psychiatric Psychiatric: Reports systems reviewed and no addt'l complaints, except as documented Endocrine Endocrinology: Reports systems reviewed and no addt'l complaints, except as documented Hematologic/Lymphatic Hematologic/Lymphatic: Reports systems reviewed and no addt'l complaints, except as documented Physical Exam Const alert, oriented x3 and no apparent distress Neck full ROM Resp normal respiratory effort, normal air movement and no retractions Effort and Inspection: able to speak in complete sentences and symmetric chest movement GI soft to palpation Inspection: incision intact Bladder / Kidney Exam: bladder normal to palpation Uterus Palpation: uterus fundus firm Extremity normal to inspection and full ROM Psych mental status grossly normal, thought process normal and cooperative Assessment & Plan (1) Status post delivery: PLAN: s/p LTCS PPD # 1 1. routine post care 2. breast feeding- support given 3. rh positive 4. rubella immune (2) Oligohydramnios: (3) Breech presentation: (4) Hx of one miscarriage: COMMENT: Prior to 1st , 5-6 weeks, no intervention required (5) Supervision of normal : QUALIFIERS: Normal : other normal T rimester: third trimester Qualified Code(s): Z34.83 - Encounter for supervision of other normal , third trimester COMMENT: [id number], DAVID 08/21/24, NASIM Ayala, Zbigniew (6) : QUALIFIERS: Weeks of gestation: 39 weeks Qualified Code(s): Z 3A.39 - 39 weeks gestation of COMMENT: GBS neg, discussed gentetic & carrier testing-declined; AFP declined; Nl anatomy US Charges/Coding Multi Select Codes Urinary/Genital Urinary/Genital CPT Codes: No Charge
[2024-08-17] MEDS: 0.9% Saline Lock 10 ML Syringe IV ×2 (12:11→17:25)
[2024-08-17 13:27] LABS: Hematocrit 31.9 % (37-47); Hemoglobin 10.9 g/dL (12.0-15.0); Mean Corp Hgb Conc 34.2 g/dL (32-36); Mean Corpuscular Hgb 32.4 pg (27.0-32.0); Mean Corpuscular Volume 94.9 fL (81-99); Mean Platelet Vol. 9.4 fl (6.2-12.0); Platelet Count 141 K/mm3 (150-450); RBC Distribution Width CV 12.4 % (11.6-14.6); RBC Distribution Width SD 43.6 fl (35.1-43.9); Red Blood Count 3.36 M/mm3 (4.2-5.4); White Blood Count 8.8 K/mm3 (4.4-11.0)
[2024-08-17] MEDS: Ibuprofen 600 MG Tablet PO (21:52)
[2024-08-18] MEDS: Acetaminophen 500 MG Tablet 1000 MG PO ×3 (01:28→13:22)
[2024-08-18 01:29] VITALS: BP 101/78; PULSE 75; RESP 14; TEMP 36.8
--- NOTE | 2024-08-18 02:36 | NURSING ---
report given to kelin PAIGE. that RN to assume care of couplet at this time.
[2024-08-18] MEDS: Ibuprofen 600 MG Tablet PO ×2 (04:00→13:20)
--- NOTE | 2024-08-18 07:54 | PCM.PN.OB ---
Subjective Subjective Patient doing well without complaints. Tolerating PO. Ambulating and voiding without difficulty. Feeding well. Denies chest pain, shortness of breath, calf pain/swelling, fevers, chills, lightheadedness. Objective Data Objective Data Vital Signs: Vital Signs Temp Pulse Resp BP Pulse Ox O2 Del Method 98.3 F 75 14 101/78 97 Room Air 08/18/24 01:29 08/18/24 01:29 08/18/24 01:29 08/18/24 01:29 08/17/24 19:59 08/18/24 01:29 Oxygen Delivery Method Room Air Weight: 198 lb 10.184 oz Body Mass Index (BMI) 32.1 Intake & Output: Intake and Output for Last 24 Hours 08/16/24 08/17/24 08/18/24 23:59 23:59 23:59 Intake Total 1650 / 1650 250 / 250 Output Total 900 / 900 951 / 951 Balance 750 / 750 -701 / -701 Lab / Micro Data 08/17/24 13:15 Labs: Laboratory Results - last 24 hr 08/17/24 13:15: WBC 8.8, RBC 3.36 L, Hgb 10.9 L, Hct 31.9 L, MCV 94.9, MCH 32.4 H, MCHC 34.2, RDW Std Deviation 43.6, RDW Coeff of Brady 12.4, Plt Count 141 L, MPV 9.4 Physical Exam Const alert and oriented x3 HEENT normocephalic Eyes PERRL Neck full ROM Resp normal respiratory effort GI soft to palpation GI Narrative: FF below U. Dressing dry and intact Palpation: tender other (appropriately) Assessment & Plan (1) Status post delivery: PLAN: Plan s/p LTCS PPD # 2 1. routine post care 2. breast feeding- support given 3. rh positive 4. rubella immune 5. home today
[2024-08-18 08:17] VITALS: BP 111/86; PULSE 81; RESP 18; TEMP 36.8; O2SAT 97
[2024-08-18] MEDS: SimETHICONE 80 MG Chewable Tablet PO (10:54)
[2024-08-18] MEDS: Senna/Docusate Sodium 1 Tablet PO (13:20)
[2024-08-18 15:05] VITALS: BP 110/76; PULSE 87; RESP 18; TEMP 36.9; O2SAT 97
--- NOTE | 2024-08-24 15:25 | NURSING ---
Follow up phone call made, no answer, left voicemail
== END 2024-08-18 15:25 | disposition home or self-care (01) | DRG 547 ==
PROVIDERS: Admitting Provider Obstetrics & Gynecology; PCP Family Medicine; Referring Provider Obstetrics & Gynecology; Visit Provider Obstetrics & Gynecology
DX: O32.1XX0 Maternal care for breech presentation, not applicable or unspecified (principal); O41.03X0 Oligohydramnios, third trimester, not applicable or unspecified; Z37.0 Single live birth; Z3A.39 39 weeks gestation of pregnancy
CPT/HCPCS: 59025; 59050; 85025; 85027; 86780; 86850; 86900; 86901; 99221; A4216; G0378; J2405

== ENCOUNTER → 2024-09-29 | Outpatient (CLI) | payer MEDICAID, SELFPAY | END | disposition home or self-care (01) | LOC: LABSPEC 15:13 | PROVIDERS: PCP Family Medicine; Referring Provider Nurse Practitioner Women's Health; Visit Provider Nurse Practitioner Women's Health | DX: Z12.4 Encounter for screening for malignant neoplasm of cervix (principal) | CPT/HCPCS: 88175; G0145 ==